=== PATIENT | female | born 2000 | race Two or more races ===

== ENCOUNTER → 2024-12-24 | Outpatient (CLI) | payer BC | LOC: M WHC 12:13 | PROVIDERS: ATTEND Obstetrics & Gynecology | DX: O36.5990 Maternal care for other known or suspected poor fetal growth, unspecified trimester, not applicable or unspecified (principal); Z3A.00 Weeks of gestation of pregnancy not specified ==

== ENCOUNTER 2025-01-12 01:24 | Inpatient (IN) | payer BC ==
[2025-01-12] VITALS (13 sets, daily range): BP systolic 109–140; BP diastolic 58–98; TEMP 98; O2SAT 96–99
[~2025-01-12] VITALS: Ht 177.8 cm; Wt 111.4 kg
[~2025-01-12 01:24] MED LIST: ALLE10TA62 PO; PRENTAB53 PO
[2025-01-12] MEDS ORDERED: TUMS500C PO (01:42)
[2025-01-12 02:34] LABS: PLATELET COUNT, AUTOMATED 218 10^3/uL (150-450)
[2025-01-12] MEDS: LR 1,000 ML IV SCH (03:09)
[2025-01-12 03:52] LABS: HEPATITIS C VIRUS ABY INDEX < 0.02 INDEX (<0.8)
[2025-01-12] MEDS: ceFAZolin SODIUM 2 GM in DEXTROSE 5% (D5W) ADV/MINI-BAG 50 ML IV ONE (04:43)
[2025-01-12] MEDS: LACTATED RINGER'S 1000 ML IV STA (04:43)
[2025-01-12] MEDS: AZITHROMYCIN INJ 500 MG, VIAL MATE ADAPTER 1 EACH in NS 250 ML IV ONE (04:44)
[2025-01-12] MEDS: BICITRA 30 ML SOLN UDC PO ONE (04:50)
[2025-01-12] MEDS ORDERED: OXYTOCIN INJ 10UNITS/ML 1ML VIAL As Ordered ONE (05:09)
[2025-01-12] MEDS ORDERED: NALBUPHINE HCL 10 MG/ML 1 ML AMP IV PRN (05:10)
[2025-01-12] MEDS ORDERED: KETOROLAC 30 MG/ML 1 ML VIAL As Ordered ONE (05:10)
[2025-01-12] MEDS ORDERED: **NOTE PATIENT COMMENT** MISC XX SCH ×2 (05:10→11:10)
[2025-01-12] MEDS: SLF 3 ML SYR IV SCH (05:10)
[2025-01-12] MEDS ORDERED: ONDANSETRON 4MG 2ML VIAL IV PRN ×2 (05:10→11:10)
[2025-01-12] MEDS ORDERED: NALOXONE INJ 0.4 MG/1 ML VIAL IV PRN ×4 (05:10→11:10)
[2025-01-12] MEDS ORDERED: diphenhydrAMINE 50 MG/ML VIAL IV PRN (05:10)
[2025-01-12] MEDS ORDERED: ONDANSETRON 4MG 2ML VIAL As Ordered ONE (05:11)
[2025-01-12] MEDS ORDERED: MORPHINE PRES-FREE INJ 10 MG/10 ML VIAL As Ordered ONE (05:20)
[2025-01-12 05:59] LABS: CORD GAS ABE A -1.4; CORD GAS HCO3 A 25.8 MMOL/L; CORD GAS O2 SAT A 66.5 %; CORD GAS PCO2 A 53.4 mmHg; CORD GAS PH A 7.302 UNITS; CORD GAS PO2 A 32.0 mmHg; CORD GAS SBC A 22.5 MMOL/L; CORD GAS TCO2 A 27.4 MMOL/L
[2025-01-12 06:00] LABS: CORD GAS ABE V -4.9; CORD GAS HCO3 V 20.1 MMOL/L; CORD GAS O2 SAT V 75.2 %; CORD GAS PCO2 V 37.4 mmHg; CORD GAS PH V 7.348 UNITS; CORD GAS PO2 V 36.7 mmHg; CORD GAS SBC V 19.9 MMOL/L; CORD GAS TCO2 V 21.2 MMOL/L
[2025-01-12] MEDS ORDERED: RHOGAM 300MCG (1500IU) INJ IM SCH (06:30)
[2025-01-12] MEDS ORDERED: DIBUCAINE 1% OINTMENT 30 GM TOP PRN (06:30)
[2025-01-12] MEDS ORDERED: PROMETHAZINE 25 MG TAB PO PRN (06:30)
[2025-01-12] MEDS ORDERED: ACETAMINOPHEN 500 MG TAB PO PRN (06:30)
[2025-01-12] MEDS ORDERED: METHYLERGONOVINE MALEATE 0.2 MG TAB PO PRN (06:30)
[2025-01-12] MEDS ORDERED: MOM 30 ML SUSPENSION UDC PO PRN (06:30)
[2025-01-12] MEDS ORDERED: DOCUSATE SODIUM 100 MG CAPSULE PO PRN (06:30)
[2025-01-12] MEDS ORDERED: OXYTOCIN 30UNITS IN 0.9% NaCl 500ML IV BAG As Ordered ONE (07:06)
[2025-01-12] MEDS: PRENATAL VITAMINS CHEWABLE TABLET PO SCH (09:14)
[2025-01-12] MEDS: DOCUSATE SODIUM 100 MG CAPSULE PO SCH (09:14)
[2025-01-12] MEDS ORDERED: HYDROMORPHONE HCL 0.5 MG/0.5 ML SYRINGE IV PRN (11:10)
[2025-01-12] MEDS ORDERED: SLF 3 ML SYR IV SCH (11:10)
[2025-01-12] MEDS ORDERED: MEPERIDINE 25 MG/ML 1 ML VIAL IV PRN (11:10)
[2025-01-12] MEDS: diphenhydrAMINE 50 MG/ML VIAL IV PRN (11:15)
[2025-01-12] MEDS: KETOROLAC 30 MG/ML 1 ML VIAL IV SCH (12:49)
[2025-01-13] MEDS: SIMETHICONE 80MG CHEW TAB PO PRN (00:31)
[2025-01-13 01:50] VITALS: BP 109/64; O2SAT 97
[2025-01-13 05:57] VITALS: BP 109/65; O2SAT 97
[2025-01-13 06:59] LABS: PLATELET COUNT, AUTOMATED 168 10^3/uL (150-450)
[2025-01-13] MEDS: IBUPROFEN 800 MG TAB PO PRN (09:14)
[2025-01-13 10:09] VITALS: BP 131/78; O2SAT 98
[2025-01-13 18:00] VITALS: BP 135/81; O2SAT 99
[2025-01-13 22:00] VITALS: BP 122/68; O2SAT 98
[2025-01-14 02:00] VITALS: BP 123/55; O2SAT 98
[2025-01-14 05:55] VITALS: BP 125/83; O2SAT 99
[2025-01-14] MEDS: MEASLES,MUMPS,RUBELLA VACCINE INJ (MMR-II) SC.IMMUN ONE (09:00)
== END 2025-01-14 14:22 | disposition home or self-care (01) | DRG 540 ==
LOC: M LDO 01:24 → M LDI 01:45 → M OBS 07:47
PROVIDERS: ADMIT Obstetrics & Gynecology; ATTEND Obstetrics & Gynecology
PROC: 10D00Z1 Extraction of Products of Conception, Low, Open Approach (ICD-10-PCS; principal; 2025-01-12 05:00)
DX: O34.211 Maternal care for low transverse scar from previous cesarean delivery (principal); O99.824 Streptococcus B carrier state complicating childbirth; Z3A.38 38 weeks gestation of pregnancy; O75.82 Onset (spontaneous) of labor after 37 completed weeks of gestation but before 39 completed weeks gestation, with delivery by (planned) cesarean section; Z37.0 Single live birth

== ENCOUNTER 2025-02-20 18:54 | Emergency (ER) | payer BC ==
[~2025-02-20] VITALS: Ht 177.8 cm; Wt 45.5 kg
[~2025-02-20 18:54] MED LIST changes: +TUMS500C PO
[2025-02-20] MEDS: KETOROLAC 60 MG/2 ML VIAL IM ONE (22:01)
[2025-02-20 22:42] VITALS: TEMP 99
[2025-02-20] MEDS: ACETAMINOPHEN 500 MG TAB PO ONE (23:24)
[2025-02-21 00:33] VITALS: BP 120/81; O2SAT 97
== END 2025-02-21 00:38 | disposition home or self-care (01) ==
LOC: M ED 18:54
DX: S63.522A Sprain of radiocarpal joint of left wrist, initial encounter (principal); S53.402A Unspecified sprain of left elbow, initial encounter; S50.12XA Contusion of left forearm, initial encounter; Y92.019 Unspecified place in single-family (private) house as the place of occurrence of the external cause; Y93.9 Activity, unspecified; Y99.9 Unspecified external cause status; W01.0XXA Fall on same level from slipping, tripping and stumbling without subsequent striking against object, initial encounter; Z79.810 Long term (current) use of selective estrogen receptor modulators (SERMs); Z79.899 Other long term (current) drug therapy
CPT/HCPCS: 29125; 73080; 73090; 73110; 73130; 96372; 99284; J1885